=== PATIENT | male | born 1980 | race African-American/Black ===

== ENCOUNTER 2017-12-19 23:31 | Inpatient (IN) ==
[2017-12-20] MEDS ORDERED: PROMETHAZINE 25 MG/1 ML VIAL IM PRN (04:26)
[2017-12-20] MEDS ORDERED: diphenhydrAMINE CAP 25 MG CAPSULE PO PRN (04:26)
[2017-12-20] MEDS ORDERED: ACETAMINOPHEN 325 MG TABLET PO PRN (04:26)
[2017-12-20] MEDS: SODIUM CHLORIDE 0.9% 1,000 ML IV SCH ×3 (04:47→22:13)
[2017-12-20 06:26] LABS: Apearance,Urine CLEAR (Clear); Bilirubin,Urine Negative (Negative); Blood, Urine Negative (Negative); Glucose,Urine (UA) Negative (Negative); Ketones,Urine Negative (Negative); Mucus,Urine Occasional /LPF (Occasional); Nitrite,Urine Negative (Negative); Protein,Urine Negative; RBC,Urine <1 /HPF (0-4); Urine Color Yellow (Yellow); Urine Urobilinogen < 2.0 EU/DL (0.2-1.0); WBC,Urine <1 /HPF (0-6)
[2017-12-20] MEDS: PIPERACILLIN/TAZOBACTAM 3,375 MG in SODIUM CHLORIDE 0.9% 100 ML IV SCH ×3 (07:24→22:14)
[2017-12-20] MEDS: MORPHINE 4 MG/1 ML VIAL IV PRN ×2 (07:50→18:45)
[2017-12-20 08:02] LABS: Basophils % 0.3 % (0.0-0.8); Eosinophils # 0.1 10*3/uL (0.0-0.87); Eosinophils % 0.6 % (0.00-10.9); Hematocrit 38.4 VOL% (42.0-52.0); Immature Granulocytes % 0.2 %; Immature Granulocytes Absolute 0.02 #; Lymphocytes # 2.1 10*3/uL (1.4-4.0); Lymphocytes % 23.8 % (21.2-54.2); Mean Corpuscular HGB Conc 33.9 GM/DL (32-36); Mean Corpuscular Hemoglobin 34 PG (27-34); Mean Corpuscular Volume 99.5 FL (87-102); Mean Platelet Volume 10.1 FL (9.6-12.0); Monocytes % 11.1 % (1.7-12.7); Neutrophils # 5.7 10*3/uL (1.4-7.4); Platelet Count 254 T/CUMM (130-400); Red Blood Count 3.86 MC/CUMM (3.8-5.5); Red Cell Distribution Width 11.7 % (9.3-17.3); White Blood Count 8.9 T/CUMM (4-12)
[2017-12-20 08:14] LABS: Bilirubin,Total 0.8 MG/DL (0.2-1.0); Calcium 8.1 MG/DL (8.5-10.1); Osmolality,Calculated 275.4 MOS/KG (273-304); Total Protein 6.2 G/DL (6.4-8.3)
[2017-12-20 08:20] LABS: Band Neutrophils 1 % (0-10); Lymphocytes 28 % (20-55); Segmented Neutrophils 54 % (50-85); Total Cells Counted 100
[2017-12-20 08:21] LABS: Hypochromasia Slight; Platelet Estimate Adequate
[2017-12-20] MEDS: PANTOPRAZOLE 40 MG TABLET PO SCH (08:48)
[2017-12-20 08:55] LABS: Partial Thromboplastin Time 31.8 SECS (0-40)
[2017-12-20] MEDS ORDERED: [UNRECOGNIZED DRUG - OTHER] PO SCH (09:00)
[2017-12-20] MEDS ORDERED: EMTRICITABINE PO SCH (09:00)
[2017-12-20] MEDS ORDERED: EFAVIRENZ PO SCH (09:00)
[2017-12-20] MEDS ORDERED: GENTAMICIN INJ 80 MG in PREMIX 1 EACH IV ONE (15:00)
[2017-12-21 05:47] LABS: Basophils % 0.3 % (0.0-0.8); Eosinophils % 0.2 % (0.00-10.9); Hematocrit 39.7 VOL% (42.0-52.0); Hemoglobin 13.1 GM/DL (14.0-18.0); Immature Granulocytes % 0.3 %; Immature Granulocytes Absolute 0.03 #; Lymphocytes % 20.9 % (21.2-54.2); Mean Corpuscular Hemoglobin 33 PG (27-34); Mean Corpuscular Volume 99.5 FL (87-102); Mean Platelet Volume 10.3 FL (9.6-12.0); Monocytes % 10.7 % (1.7-12.7); Neutrophils # 6.6 10*3/uL (1.4-7.4); Neutrophils % 67.6 % (38.7-73.9); Platelet Count 276 T/CUMM (130-400); Red Blood Count 3.99 MC/CUMM (3.8-5.5); Red Cell Distribution Width 11.4 % (9.3-17.3); White Blood Count 9.7 T/CUMM (4-12)
[2017-12-21] MEDS: MORPHINE 4 MG/1 ML VIAL IV PRN ×3 (05:57→20:55)
[2017-12-21] MEDS: PIPERACILLIN/TAZOBACTAM 3,375 MG in SODIUM CHLORIDE 0.9% 100 ML IV SCH ×3 (05:58→21:00)
[2017-12-21 06:14] LABS: Bilirubin,Total 0.8 MG/DL (0.2-1.0); Calcium 8.8 MG/DL (8.5-10.1); Osmolality,Calculated 276.4 MOS/KG (273-304); Potassium 3.9 MMOL/L (3.5-5.1); Total Protein 6.9 G/DL (6.4-8.3)
[2017-12-21 06:17] LABS: Albumin 2.9 G/DL (3.4-5.0); Bilirubin,Direct 0.14 MG/DL (0.0-0.20); Bilirubin,Indirect 0.7 MG/DL (0.0-1.0); Bilirubin,Total 0.8 MG/DL (0.2-1.0); Total Protein 6.8 G/DL (6.4-8.3)
[2017-12-21] MEDS: SODIUM CHLORIDE 0.9% 1,000 ML IV SCH ×2 (14:29→22:32)
[2017-12-21] MEDS: ENOXAPARIN 40 MG/0.4 ML SYRINGE SUBCUT SCH (14:33)
[2017-12-21] MEDS: PANTOPRAZOLE 40 MG TABLET PO SCH (14:33)
[2017-12-22] MEDS: MORPHINE 4 MG/1 ML VIAL IV PRN (05:17)
[2017-12-22] MEDS: SODIUM CHLORIDE 0.9% 1,000 ML IV SCH ×2 (05:21→14:00)
[2017-12-22] MEDS: PIPERACILLIN/TAZOBACTAM 3,375 MG in SODIUM CHLORIDE 0.9% 100 ML IV SCH ×3 (05:22→21:13)
[2017-12-22] MEDS: ENOXAPARIN 40 MG/0.4 ML SYRINGE SUBCUT SCH (09:25)
[2017-12-22] MEDS: PANTOPRAZOLE 40 MG TABLET PO SCH (09:25)
[2017-12-23] MEDS: SODIUM CHLORIDE 0.9% 1,000 ML IV SCH (02:49)
[2017-12-23] MEDS: PIPERACILLIN/TAZOBACTAM 3,375 MG in SODIUM CHLORIDE 0.9% 100 ML IV SCH (05:44)
[2017-12-23] MEDS ORDERED: LEVOFLOXACIN 500 MG TABLET PO SCH (08:30)
[2017-12-23] MEDS: PANTOPRAZOLE 40 MG TABLET PO SCH (08:46)
[2017-12-23] MEDS: ENOXAPARIN 40 MG/0.4 ML SYRINGE SUBCUT SCH (08:46)
[2017-12-23] MEDS ORDERED: metroNIDAZOLE 500 MG TABLET PO SCH (09:00)
[2017-12-23 12:45] VITALS: BP 119/67
== END 2017-12-23 12:24 | disposition home or self-care (01) | DRG 392 ==
LOC: SUATTDRO 12-20 00:48 → N.5E 12-20 00:48
PROVIDERS: ADMIT Hospitalist; ATTEND Internal Medicine